=== PATIENT | female | born 1990 | race Two or more races ===

== ENCOUNTER 2023-08-20 00:23 | Emergency (ER) | payer MEDICAID, OTHER ==
[~2023-08-20] VITALS: Ht 160 cm; Wt 105.0 kg
[2023-08-20 00:44] VITALS: BP 156/90; RESP 20; O2SAT 97
[2023-08-20 00:53] VITALS: PULSE 112
[2023-08-20 01:16] LABS: Basophils # (auto) 0.1 10 ^3/uL (0-0.2); Eosinophils # (auto) 0.8 10 ^3/uL (0-0.8); Mean Corpuscular Hgb Conc. 32.5 g/dL (32.0-36.0); Monocytes # (auto) 0.7 10 ^3/uL (0-1.3)
[2023-08-20 01:17] LABS: Basophils % (auto) 0.6 % (0.0-2.0); Eosinophils % (auto) 6.3 % (0.0-7.0); Hematocrit 41.5 % (36.0-46.0); Hemoglobin 13.5 g/dL (12.2-16.2); Lymphocytes # (auto) 2.4 10 ^3/uL (0.4-5.4); Lymphocytes % (auto) 19.1 % (10.0-50.0); Mean Corpuscular Hemoglobin 25.6 pg (28.0-32.0); Mean Corpuscular Volume 78.9 fL (80.0-100.0); Monocytes % (auto) 5.4 % (0.0-12.0); Neutrophils # (auto) 8.8 10 ^3/uL (1.6-8.6); Neutrophils % (auto) 68.6 % (37.0-80.0); Nucleated Red Blood Cells % 0.1 %; Red Blood Cells 5.26 10^6/uL (4.0-5.20); Red Cell Distribution Width 15.6 % (11.8-14.3); White Blood Cell 12.8 10^3/uL (4.4-10.8)
[2023-08-20 01:29] LABS: Alanine Aminotransferase 14 U/L (7-40); Albumin 4.4 g/dL (3.2-4.8); Alkaline Phosphatase 99 U/L (46-116); Anion Gap 7 (5-15); Aspartate Aminotransferase 14 U/L (13-40); BUN/Creatinine Ratio 21.1 (10.0-20.0); Blood Urea Nitrogen 16 mg/dL (9-23); Carbon Dioxide 24 mmol/L (20-30); Chloride 106 mmol/L (98-107); Glucose 109 mg/dL (74-106); Potassium 3.9 mmol/L (3.5-5.1); Sodium 137 mmol/L (136-145)
[2023-08-20 01:30] LABS: Bilirubin, Total 0.2 mg/dL (0.2-1.0); Total Protein 7.2 g/dL (5.7-8.2)
== END 2023-08-20 04:41 | disposition left against medical advice (07) ==
LOC: ER 00:23
DX: R06.02 Shortness of breath (principal); R05.9 Cough, unspecified; J02.9 Acute pharyngitis, unspecified; Z53.21 Procedure and treatment not carried out due to patient leaving prior to being seen by health care provider
CPT/HCPCS: 36415; 71045; 80053; 84484; 85025; 93005